=== PATIENT | male | born 1970 | race Caucasian/White ===

== ENCOUNTER 2018-01-26 09:23 | Emergency (ER) | payer SELFPAY ==
[2018-01-26 09:24] VITALS: BP 111/73; PULSE 66; RESP 16; TEMP 36.8; O2SAT 97; BMI 27.0
--- NOTE | 2018-01-26 09:40 | ED.DCSUM_ITS ---
History of Present Illness Chief Complaint: Dizziness Informant: Patient, Family Onset: Weeks - 3 Context: Sudden Onset - lying down, when it started Timing: Intermittent Quality: spinning, lightheadedness Location: head Current Severity: Mild Maximum Severity: Severe Worsened by: head movements, position changes -- getting out of bed this AM Relieved by: remaining still Associated Symptoms: nausea/vomiting at times Narrative: About 3 weeks total of intermittent symptoms. Standing up not necessarily worse than sitting down. At times has felt like he was going to pass out, but has not. Definitely feels like things are spinning every time he gets this. No recent URIs. No recent new medications, he takes a multivitamin, a vitamin D3 and coenzyme Qa supplement, and another herbal pill that is not new. No headaches, ringing in his ears, earache, decrease in hearing or changes in it, vision changes or diplopia, or neck pain. No chest discomfort, palpitations. No focal peripheral neurologic symptoms. No recent head injuries. Today, despite resting, the symptoms did not go away. Prior similar symptoms: No Recent Illness/Hospitalization: No Past Medical History - Allergies and Home Meds Allergies/Adverse Reactions: Allergies No Known Allergies Allergy (Verified 01/26/18 09:27) Home Medications: Home Medications Medication Instructions Recorded Meclizine HCl 25 mg PO Q8H PRN #21 tab 01/26/18 Ondansetron [Zofran Odt] 8 mg PO Q8H PRN PRN #12 tab 01/26/18 Primary Care Physician: Ruel Atkinson III, MD [Primary Care Provider] - Lives: With Family Smoking Status: Never smoker Alcohol: None Drugs: None Review of Systems All systems negative except as indicated General: Denies: Fever, Malaise Eyes: Denies: Visual changes - bilaterally, Blurred Vision - bilaterally, Diplopia Cardiovascular: Denies: Chest pain, Palpitations, Heart racing Respiratory: Denies: Dyspnea, Cough Gastrointestinal: Reports: Nausea, Vomiting. Denies: Abdominal pain, Diarrhea, Melena, Hematochezia Genitourinary: Denies: Dysuria, Hematuria Musculoskeletal: Denies: Myalgias, Neck pain, Back pain Neurological: Denies: Headache, Weakness, Parasthesia, Numbness Physical Exam Vital Signs/Narrative: Vital Signs Temp Pulse Resp BP Pulse Ox 01/26/18 09:24 98.2 F 66 16 111/73 97 Inital Vital Signs reviewed: Yes General: Well nourished, Well developed Head: Normocephalic, Atraumatic Eyes: Perrl, EOMI - bilat horiz nystagmus, no vertical/rotatory ENT: Moist mucous membranes, No rhinorrhea, TM's clear, - - EACs clear bilat. no mastoid tenderness/erythema.. Negative for: Nasal congestion, Sinus tenderness Cardiovascular: Regular rate, Regular rhythm, No murmurs Respiratory: No distress, CTA bilaterally, Chest nontender Back: Nontender, Normal Inspection Extremities: Nontender, No edema Skin: Normal color, No rash Neurological: Alert, Oriented x3, Cranial nerves II-XII grossly intact, Normal Strength, Normal Sensation, Normal DTR - toes downgoing bilat. no clonus., - - nml HTS and FTN. with [place]-Hallpike, pt very symptomatic to both sides and self- aborts the procedure.. Negative for: Normal Gait - mildly ataxic Diagnostic/Tx/Re-eval Laboratory Results 01/26/18 01/26/18 Range/Units 09:35 09:35 WBC 5.6 (4.4-11.0) K/mm3 RBC 5.33 (4.6-6.2) M/mm3 Hgb 16.9 H (13.0-16.5) g/dl Hct 47.1 (40-54) % MCV 88.4 (80-94) fL MCH 31.7 (27.0-32.0) pg MCHC 35.9 (32-36) g/gl RDW 12.7 (11.6-14.6) % RDW Differential 41.2 (35.1-43.9) fl Plt Count 159 (150-450) K/mm3 MPV 10.1 (6.2-12.0) fl Immature Gran % (Auto) 0.400 (0.0-0.9) % Neut % (Auto) 67.7 (47-70) % Lymph % (Auto) 20.6 (19-41) % [place] % (Auto) 8.1 (0-10) % Eos % (Auto) 2.7 (0-5) % Baso % (Auto) 0.5 (0-1) % Absolute Neuts (auto) 3.8 (2.0-7.7) X10^3/uL Absolute Lymphs (auto) 1.15 (0.83-4.51) X10^3/ul Total Counted Not Reportable Sodium 141 (136-145) mmol/L Potassium 4.1 (3.5-5.1) mmol/L Chloride 108 H (98-107) mmol/L Carbon Dioxide 26.0 (21.0-32.0) mmol/L Anion Gap 7 (5-15) BUN 20 H (7-18) mg/dL Creatinine 1.03 (0.70-1.30) mg/dL Estim Creat Clear Calc 87.62 ml/min Est GFR (MDRD) Af Amer 100 (>60) mL/min Est GFR (MDRD) Non-Af 83 (>60) mL/min BUN/Creatinine Ratio 19.4 (10-20) RATIO Glucose 111 H (74-106) mg/dL Calcium 9.2 (8.5-10.1) mg/dL - Medical Decision Making Suspect peripheral vertigo. Labs are unremarkable, consistent with that. He was given Valium, Phenergan, meclizine, symptoms are improved afterwards. Prescribed meclizine/Zofran and advised to follow-up. ED Disposition - Plan for ED Patient: Disposition: Home or Assisted Living Chief Complaint: Dizziness Diagnosis: Peripheral vertigo, unspecified Instructions: ED BPV Vertigo, ED Vertigo Unspecified Prescriptions: Ondansetron [Zofran Odt] 8 mg PO Q8H PRN PRN #12 tab PRN Reason: Nausea Meclizine HCl 25 mg PO Q8H PRN #21 tab PRN Reason: Vertigo Referrals: Ruel Atkinson III, MD [Primary Care Provider] - 3-5 Days if not improving
[2018-01-26 09:53] LABS: Absolute Lymphocyte Count 1.15 X10^3/ul (0.83-4.51); Absolute Neutrophil Count 3.8 X10^3/uL (2.0-7.7); Basophil# 0.03 X10^3/uL; Basophil% 0.5 % (0-1); Eosinophil# 0.15 X10^3/uL; Eosinophils% 2.7 % (0-5); Hematocrit 47.1 % (40-54); Hemoglobin 16.9 g/dl (13.0-16.5); Lymphocyte # 1.15 X10^3/ul (4.0); Lymphocyte % 20.6 % (19-41); Mean Corp Hgb Conc 35.9 g/gl (32-36); Mean Corpuscular Hgb 31.7 pg (27.0-32.0); Mean Corpuscular Volume 88.4 fL (80-94); Mean Platelet Vol. 10.1 fl (6.2-12.0); Monocyte# 0.45 X10^3/uL; Monocyte% 8.1 % (0-10); Neutrophil # 3.78 X10^3/uL (2.7-7.7); Neutrophil % 67.7 % (47-70); POSITIVE COUNT NO; POSITIVE DIFFERENTIAL NO; POSITIVE MORPHOLOGY NO; Platelet Count 159 K/mm3 (150-450); RBC Distribution Width CV 12.7 % (11.6-14.6); RBC Distribution Width SD 41.2 fl (35.1-43.9); Red Blood Count 5.33 M/mm3 (4.6-6.2); White Blood Count 5.6 K/mm3 (4.4-11.0)
[2018-01-26 10:02] LABS: Anion Gap 7 (5-15); BUN 20 mg/dL (7-18); BUN/Creat Ratio 19.4 RATIO (10-20); Calcium,Total 9.2 mg/dL (8.5-10.1); Chloride 108 mmol/L (98-107); Creatinine, Serum 1.03 mg/dL (0.70-1.30); EST Glomerular Filtration Rate 83 mL/min (>60); Est Glom Filt Rate - Afr Amer 100 mL/min (>60); Estimated Creatinine Clearance 87.62 ml/min; Glucose 111 mg/dL (74-106); Potassium 4.1 mmol/L (3.5-5.1); Sodium Level 141 mmol/L (136-145)
[2018-01-26] MEDS: proMETHazine 25 MG/ML Syringe 6.25 MG IV (10:03)
[2018-01-26] MEDS: diazePAM 5 MG Tablet PO (10:03)
[2018-01-26] MEDS: Meclizine HCl 25 MG Tablet PO (10:03)
[2018-01-26 10:41] VITALS: BP 107/79; PULSE 58; RESP 17; O2SAT 97
--- NOTE | 2018-01-26 10:41 | ED.RN ---
pt instructed on discharge instructions. verbalizes understanding. pt ambuolatory out of dept.
== END 2018-01-26 10:42 | disposition home or self-care (01) ==
PROVIDERS: Emergency Provider Emergency Medicine; Family Provider Family Medicine; PCP Family Medicine
DX: H81.399 Other peripheral vertigo, unspecified ear (principal)
CPT/HCPCS: 80048; 85025; 96374; 99284; A4216